=== PATIENT | female | born 1960 | race Caucasian/White ===

== ENCOUNTER → 2023-12-31 07:30 | Outpatient (REF) | payer OTHER, SELFPAY | LOC: MRI 3T 07:30 | PROVIDERS: ATTENDING PHYSICIAN Internal Medicine Gastroenterology | DX: K86.2 Cyst of pancreas (principal) | CPT/HCPCS: 74183; A9575 ==

== ENCOUNTER → 2024-06-20 14:27 | Outpatient (REF) | payer OTHER, MEDICARE, SELFPAY | LOC: WDC 14:27 | PROVIDERS: ATTENDING PHYSICIAN Obstetrics & Gynecology Gynecology; FAMILY PHYSICIAN Registered Nurse | DX: Z78.0 Asymptomatic menopausal state (principal); Z12.31 Encounter for screening mammogram for malignant neoplasm of breast | CPT/HCPCS: 77063; 77067; 77080 ==